=== PATIENT | female | born 1950 | race Caucasian/White ===

== ENCOUNTER → 2016-08-07 | Outpatient (CLI) | payer OTHER ==
--- NOTE | 2016-08-08 04:49 | REP ---
Clinical: Follow up cysts. Technique: Real time mcadams scale ultrasound examination using curved array transducer. Comparison: 08/20/2015. Findings: The bilateral kidneys are normal in reniform shape and echogenicity without hydronephrosis, obvious nephrolithiasis, mass lesion or perinephric fluid collection. Bilateral predominately sub centimeter complex cysts with small amounts of scattered mural calcifications are appreciated and relatively stable compared to prior examination. Right kidney measures 9.4 x 4.8 x 4.2 cm with multiple complex sub centimeter cysts and 1.4 cm upper pole partially calcified cyst essentially unchanged from prior exam. Left kidney measures 10.5 x 5.6 x 4.8 cm with multiple complex sub centimeter cysts and 1.1 cm upper pole partially calcified cyst essentially unchanged from prior examination. The bladder is unremarkable and bilateral ureteral jets are noted. Impression: Bilateral predominately sub centimeter cysts with scattered mural calcifications essentially unchanged compared to 2016. Signed by Joey Valerio MD 08/08/2016 04:40 A
== END ==
LOC: M SMT 12:58
PROVIDERS: ATTEND Nurse Practitioner Women's Health
DX: N28.1 Cyst of kidney, acquired (principal)

== ENCOUNTER → 2016-10-02 | Outpatient (CLI) | payer OTHER ==
--- NOTE | 2016-10-02 10:49 | REPMRS ---
Patient History The patient states she had a clinical breast exam in Patient is postmenopausal. No known family history of cancer. Benign excisional biopsy of the right breast, 1995. Digital Woman Screen Mammo: October 02, 2016 - Exam #: [id number] Bilateral CC and MLO view(s) were taken. Technologist: Lashonda Faust, Technologist Prior study comparison: October 01, 2015, digital woman screen mammo performed at [facility]. September 27, 2014, digital woman screen mammo performed at [facility]. FINDINGS: There are scattered fibroglandular densities. There has been no change in the appearance of the mammogram from the prior studies. There is a mild amount of residual fibroglandular tissue which is fairly symmetric. There is no interval development of dominant mass, architectural distortion, or clustered microcalcification suggestive of malignancy. ASSESSMENT: BI-RADS/ACR category 1 mammogram. Negative. Recommendation Routine screening mammogram in 1 year (for women over age 40). This mammogram was interpreted with the aid of an FDA-approved computer-aided dectection system. Electronically Signed By: Roshan Crum MD 10/02/16 [id number]
== END ==
LOC: M WHC 09:22
PROVIDERS: ATTEND Nurse Practitioner Family
DX: Z12.31 Encounter for screening mammogram for malignant neoplasm of breast (principal)

== ENCOUNTER → 2016-10-02 | Outpatient (REF) | payer OTHER | LOC: M SFHCWAGY 10:03 | PROVIDERS: ATTEND Nurse Practitioner Family | DX: Z12.4 Encounter for screening for malignant neoplasm of cervix (principal) ==

== ENCOUNTER → 2017-07-22 | Outpatient (CLI) | payer MEDICARE, OTHER | LOC: M SMT 09:07 | DX: N28.1 Cyst of kidney, acquired (principal) | CPT/HCPCS: 76770 ==

== ENCOUNTER → 2017-10-05 | Outpatient (CLI) | payer MEDICARE, OTHER | LOC: M WHC 09:16 | DX: Z12.31 Encounter for screening mammogram for malignant neoplasm of breast (principal); Z01.419 Encounter for gynecological examination (general) (routine) without abnormal findings (principal); Z92.89 Personal history of other medical treatment; Z12.12 Encounter for screening for malignant neoplasm of rectum | CPT/HCPCS: 77067 ==

== ENCOUNTER → 2018-07-27 | Outpatient (CLI) | payer MEDICARE, OTHER ==
--- NOTE | 2018-07-27 10:58 | REP ---
RENAL AND BLADDER ULTRASOUND: Real-time sonographic evaluation of the kidneys performed. Right kidney is slightly smaller in size than the left and may be mildly atrophic, measuring 8.8 x 4.7 x 4.9 cm. Left kidney measures 10.0 x 4.9 x 4.9 cm. There is no hydronephrosis bilaterally. A cyst with linear wall calcifications is seen in the upper pole of the right kidney 1.6 cm in diameter. A cyst with a peripheral calcification in the lower pole of the right kidney measures 1.4 cm in diameter. A cyst in the upper pole of the left kidney contains a calcification in the wall 1.4 cm in diameter. Other smaller cysts are seen bilaterally. Urinary bladder is distended with no evidence of mass or calculus. There are bilateral ureteral jets in the urinary bladder with Doppler color evaluation. IMPRESSION: There appears to be mild right renal atrophy. No hydronephrosis. Bilateral renal cysts. The findings are essentially unchanged compared to the prior study of 07/22/2017. Electronically Signed by Roshan Crum MD 07/27/2018 12:36 P
== END ==
LOC: M RAD 09:54
PROVIDERS: ATTEND Nurse Practitioner Women's Health
DX: N26.1 Atrophy of kidney (terminal) (principal); N28.1 Cyst of kidney, acquired; Z87.440 Personal history of urinary (tract) infections

== ENCOUNTER → 2018-11-02 | Outpatient (REF) | payer MEDICARE, OTHER | LOC: M SFHCWAGY 09:46 | PROVIDERS: ATTEND Nurse Practitioner Family | DX: Z12.4 Encounter for screening for malignant neoplasm of cervix (principal); N95.8 Other specified menopausal and perimenopausal disorders ==

== ENCOUNTER → 2018-11-02 | Outpatient (CLI) | payer MEDICARE, OTHER ==
--- NOTE | 2018-11-02 12:40 | REPMRS ---
Patient History The patient states she had a clinical breast exam in 10/2018. Patient is postmenopausal. No known family history of cancer. Benign excisional biopsy of the right breast, 1995. No Hormone Replacement Therapy 3D TOMOSYNTHESIS WAS PERFORMED. The [facility] lifetime risk for breast cancer is 6.9%. Digital Woman Screen Mammo: November 02, 2018 - Exam #: [id number] Bilateral CC and MLO view(s) were taken. Technologist: Janay Best, Technologist Prior study comparison: October 05, 2017, bilateral digital woman screen mammo performed at [facility]. October 02, 2016, digital woman screen mammo performed at [facility]. FINDINGS: There are scattered fibroglandular densities. There has been no change in the appearance of the mammogram from the prior studies. There is a mild amount of residual fibroglandular tissue which is fairly symmetric. There is no interval development of dominant mass, architectural distortion, or clustered microcalcification suggestive of malignancy. Assessment: BI-RADS/ACR category 1 mammogram. Negative Mammogram. Recommendation Routine screening mammogram in 1 year (for women over age 40). This mammogram was interpreted with the aid of an FDA-approved computer-aided dectection system. Electronically Signed By: Roshan Crum MD 11/02/18 1149
--- NOTE | 2018-11-04 15:34 | DEXA ---
AP SPINE L1 - L4 1.171 -0.2 1.4 LT FEMUR TOTAL 0.951 -0.5 0.8 LT NECK 0.878 -1.2 0.4 RT FEMUR TOTAL 0.962 -0.4 0.9 RT NECK 0.957 -0.6 1.0 TOTAL BODY TOTAL OTHER COMMENTS: Normal bone densitometry of the spine. Normal bone densitometry of the right hip. There is low bone density of the left hip. The increased density of the spine does not represent a significant change. The increased density of the right hip does represent a significant change. The density of the spine has increased 0.5% since the initial exam on 05/23/2003. The spine density has increased 0.3% since the most recent exam on 09/26/2013. The density of the left hip has decreased 5.0% since the initial exam on 05/23/2003. The density of the left hip has increased 0.0% since the most recent exam on 09/26/2013. The density of the right hip has increased 0.2% since the initial exam on 05/23/2003. The density of the right hip has increased 2.4% since the most recent exam on 09/26/2013. FOLLOW-UP: Recommendation for the next bone density exam: 2 years. BROOKE
== END ==
LOC: M WHC 09:23
PROVIDERS: ATTEND Nurse Practitioner Family
DX: Z01.419 Encounter for gynecological examination (general) (routine) without abnormal findings (principal); Z12.31 Encounter for screening mammogram for malignant neoplasm of breast; N95.9 Unspecified menopausal and perimenopausal disorder; Z78.0 Asymptomatic menopausal state; Z86.018 Personal history of other benign neoplasm
CPT/HCPCS: 77063; 77067; 77080; G0101; G0123

== ENCOUNTER → 2019-08-09 | Outpatient (CLI) | payer MEDICARE, OTHER ==
--- NOTE | 2019-08-09 16:14 | REP ---
URINARY TRACT SONOGRAPHY: HISTORY: Followup cysts. Comparison urinary tract sonography, July 27, 2018. FINDINGS: Scanning at the level of the urinary bladder shows no abnormality. Renal cortical echogenicity pattern is slightly increased on the right, felt to be normal on the left. There is no evidence of hydronephrosis or renal mass on either side. Right renal dimensions are 8.7 x 4.1 x 4.5 cm. The right kidney is felt to be atrophic. Similar dimensions were measured previously. The left kidney measures 10.3 x 5.9 x 5.9 cm. There are bilateral renal cysts, multiple in each kidney. There is some calcification in the wall of the cyst in the upper pole right kidney which measures 1.5 cm in diameter, unchanged. There are calcifications in the wall of the lower pole cyst on the right which measures 1.3 cm. There are two other small cysts in the right kidney measuring 1.0 and 0.8 cm in greatest diameter. There is evidence of calcification in the wall of the upper pole cyst on the left measuring 1.3 cm in greatest diameter. There is a 0.8 cm cyst and a 0.5 cm cyst in the left kidney. IMPRESSION: Multiple minimally complex cysts bilaterally. No hydronephrosis seen. Right renal atrophy and mildly echogenic renal parenchyma. No renal mass lesions seen. Electronically Signed by Luciano Martinez MD 08/10/2019 08:10 A
== END ==
LOC: M RAD 13:08
PROVIDERS: ATTEND Nurse Practitioner Women's Health
DX: N28.1 Cyst of kidney, acquired (principal)

== ENCOUNTER → 2019-11-16 | Outpatient (CLI) | payer MEDICARE, OTHER ==
--- NOTE | 2019-11-16 15:27 | REPMRS ---
Patient History The patient states she had a clinical breast exam in 10/2019. No known family history of cancer. Benign excisional biopsy of the right breast, 1995. No Hormone Replacement Therapy 3D TOMOSYNTHESIS WAS PERFORMED. [facility] lifetime risk for breast cancer is 6.5%. VOLPARA DENSITY A. Digital Woman Screen Mammo: November 16, 2019 - Exam #: [id number] Bilateral CC and MLO view(s) were taken. Technologist: Janay Best, Technologist Prior study comparison: November 02, 2018, bilateral digital woman screen mammo performed at [facility] October 05, 2017, bilateral digital woman screen mammo performed at [facility]. FINDINGS: There are scattered fibroglandular densities. There has been no change in the appearance of the mammogram from the prior studies. There is a mild amount of residual fibroglandular tissue which is fairly symmetric. There is no interval development of dominant mass, architectural distortion, or clustered microcalcification suggestive of malignancy. Assessment: BI-RADS/ACR category 1 mammogram. Negative Mammogram. Recommendation Routine screening mammogram in 1 year (for women over age 40). This mammogram was interpreted with the aid of an FDA-approved computer-aided dectection system. Electronically Signed By: Roshan Crum MD 11/16/19 [id number]
== END ==
LOC: M WHC 14:00
PROVIDERS: ATTEND Nurse Practitioner Family
DX: Z12.31 Encounter for screening mammogram for malignant neoplasm of breast (principal); Z86.018 Personal history of other benign neoplasm

== ENCOUNTER → 2020-08-14 | Outpatient (REF) | payer MEDICARE, OTHER ==
[2020-08-14 13:21] LABS: APPEARANCE, URINE CLEAR (CLEAR); BACTERIA, URINE AUTO 1+ (NEGATIVE); BILIRUBIN, URINE AUTO NEGATIVE (NEGATIVE); BLOOD, URINE BLOOD 1+ (NEGATIVE); COLOR, URINE YELLOW (YELLOW); GLUCOSE, URINE (UA) AUTO NEGATIVE (NEGATIVE); KETONE, URINE AUTO NEGATIVE (NEGATIVE); LEUKOCYTE ESTERASE, URINE AUTO 1+ (NEGATIVE); NITRITE, URINE AUTO NEGATIVE (NEGATIVE); PROTEIN, URINE AUTO NEGATIVE (NEGATIVE); RBC, URINE AUTO 1 /HPF (0-3); SPECIFIC GRAVITY URINE AUTO 1.009 (1.002-1.035); SQUAMOUS EPITHELIAL CELL UR AU 0 /HPF (0-6); UROBILINOGEN, URINE AUTO 0.2 mg/dL (0.0-2.0); WBC, URINE AUTO 5 /HPF (0-3)
== END ==
LOC: M SMT 12:53
PROVIDERS: ATTEND Nurse Practitioner Women's Health
DX: Z87.440 Personal history of urinary (tract) infections (principal); Z79.899 Other long term (current) drug therapy
CPT/HCPCS: 81001; 87088; 87186; G0463

== ENCOUNTER → 2020-11-20 | Outpatient (CLI) | payer MEDICARE, OTHER ==
--- NOTE | 2020-11-20 09:59 | REPMRS ---
Patient History The patient states she had a clinical breast exam in October 2020. Patient is postmenopausal and has history of other cancer at age 69. No known family history of cancer. Benign excisional biopsy of the right breast, 1995. No Hormone Replacement Therapy Patient states no breast complaints today. Patient has signed MRS History Sheet. Digital Woman Screen Mammo: November 20, 2020 - Exam #: [id number] Bilateral CC and MLO view(s) were taken. Technologist: Tania Cedeno, Technologist Prior study comparison: November 16, 2019, bilateral digital woman screen mammo performed at [facility]. November 02, 2018, bilateral digital woman screen mammo performed at [facility]. FINDINGS: The breast tissue is almost entirely fat. Screening. Digital screening (2D) mammography was performed bilaterally in the CC and MLO projections. Additionally, breast tomosynthesis (3D mammography) was performed bilaterally in the CC and MLO projections. Todays exam was compared to the prior exam/exams. By history, the patient has no complaints of a palpable breast abnormality or other significant breast complaints. The breasts are unchanged in size and shape. There are no vishnu-soft tissue densities or spiculated masses. There is no internal architectural distortion. Once again, stable benign appearing calcifications are seen.There are no suspicious vishnu-calcific clusters. Skin thickening or nipple retraction is not present. IMPRESSION: BI-RADS Category 2- Benign Findings. There is no evidence of malignant alteration of the breasts. Followup examination recommended in one year. The Volpara volumetric breast density category is A, the breasts are almost entirely fatty. This mammogram was read with [facility] assistance of [facility],an FDA approved computer aided detection system for mammography. The lifetime Tyrer-Cuzick score is 6.1 % Negative x-ray reports should not delay surgical consultation if a dominant or clinically suspicious mass is present. Not all breast cancers can be identified by mammography. Therefore, we recommend that you continue to perform regular breast self-examination and physical examination and then promptly contact your physician of any concerns or changes. Adenosis and dense breasts may obscure an underlying neoplasm. Assessment: BI-RADS/ACR category 2 mammogram. Benign Findings. Recommendation Routine screening mammogram of both breasts in 1 year. Electronically Signed By: Tra Stuart DO 11/20/20 [id number]
== END ==
LOC: M WHC 08:49
PROVIDERS: ATTEND Nurse Practitioner Women's Health
DX: Z12.4 Encounter for screening for malignant neoplasm of cervix (principal); Z12.31 Encounter for screening mammogram for malignant neoplasm of breast; Z78.0 Asymptomatic menopausal state; Z85.9 Personal history of malignant neoplasm, unspecified
CPT/HCPCS: 77063; 77067; G0101

== ENCOUNTER → 2021-08-07 | Outpatient (CLI) | payer MEDICARE, OTHER | LOC: M RAD 09:53 | PROVIDERS: ATTEND Nurse Practitioner Women's Health | DX: N28.1 Cyst of kidney, acquired (principal) ==

== ENCOUNTER → 2021-10-23 | Outpatient (REF) | payer MEDICARE, OTHER ==
[2021-10-23 17:52] LABS: APPEARANCE, URINE MANUAL CLEAR (CLEAR); COLOR, URINE MANUAL YELLOW (YELLOW)
[2021-10-23 17:54] LABS: SPECIFIC GRAVITY,URINE MANUAL 1.005 (1.002-1.035)
[2021-10-23 17:55] LABS: BILIRUBIN, URINE MANUAL NEGATIVE (NEGATIVE); BLOOD URINE MANUAL NEGATIVE (NEGATIVE); GLUCOSE, URINE (UA) MANUAL NEGATIVE (NEGATIVE); KETONE, URINE MANUAL NEGATIVE (NEGATIVE); LEUKOCYTE ESTERASE, URINE MAN POSITIVE (NEGATIVE); NITRITE, URINE MANUAL NEGATIVE (NEGATIVE); PROTEIN, URINE MANUAL NEGATIVE (NEGATIVE); UROBILINOGEN, URINE MANUAL NORMAL (NORMAL)
[2021-10-23 19:02] LABS: BACTERIA, URINE SMALL AMOUNT; HYALINE CAST, URINE NONE SEEN /lpf (0-1); RENAL EPITHELIAL CELLS, URINE SMALL AMOUNT /hpf; SQUAMOUS EPITHELIAL CELL URINE MOD AMOUNT /hpf (SMALL AMT); TRANSITIONAL EPI CELLS, URINE MOD AMOUNT /hpf
== END ==
LOC: M SMT 17:19
PROVIDERS: ATTEND Nurse Practitioner Women's Health
DX: R35.0 Frequency of micturition (principal)

== ENCOUNTER → 2021-11-22 | Outpatient (REF) | payer MEDICARE, OTHER | LOC: M SFHCWAGY 13:30 | PROVIDERS: ATTEND Specialist | DX: Z01.419 Encounter for gynecological examination (general) (routine) without abnormal findings (principal); Z12.4 Encounter for screening for malignant neoplasm of cervix ==

== ENCOUNTER → 2022-11-24 | Outpatient (CLI) | payer MEDICARE, OTHER | LOC: M WHC 10:30 | PROVIDERS: ATTEND Specialist | DX: Z12.31 Encounter for screening mammogram for malignant neoplasm of breast (principal) ==

== ENCOUNTER → 2023-08-10 | Outpatient (CLI) | payer MEDICARE, OTHER | LOC: M RAD 12:45 | PROVIDERS: ATTEND Physician Assistant | DX: N28.1 Cyst of kidney, acquired (principal) ==

== ENCOUNTER → 2023-08-17 | Outpatient (REF) | payer MEDICARE, OTHER ==
[2023-08-17 12:50] LABS: APPEARANCE, URINE CLEAR (CLEAR); BACTERIA, URINE AUTO 1+ (NEGATIVE); BILIRUBIN, URINE AUTO NEGATIVE (NEGATIVE); BLOOD, URINE BLOOD NEGATIVE (NEGATIVE); COLOR, URINE STRAW (YELLOW); GLUCOSE, URINE (UA) AUTO NEGATIVE (NEGATIVE); KETONE, URINE AUTO NEGATIVE (NEGATIVE); LEUKOCYTE ESTERASE, URINE AUTO NEGATIVE (NEGATIVE); MUCUS, URINE SMALL (NEGATIVE); NITRITE, URINE AUTO NEGATIVE (NEGATIVE); PROTEIN, URINE AUTO NEGATIVE (NEGATIVE); RBC, URINE AUTO 1 /HPF (0-3); SPECIFIC GRAVITY URINE AUTO 1.006 (1.002-1.035); SQUAMOUS EPITHELIAL CELL UR AU 0 /HPF (0-6); UROBILINOGEN, URINE AUTO 0.2 mg/dL (0.0-2.0); WBC, URINE AUTO 1 /HPF (0-3)
== END ==
LOC: M SMT 12:35
PROVIDERS: ATTEND Physician Assistant
DX: R31.21 Asymptomatic microscopic hematuria (principal)

== ENCOUNTER → 2023-12-02 | Outpatient (CLI) | payer MEDICARE, OTHER | LOC: M WHC 10:00 | PROVIDERS: ATTEND Obstetrics & Gynecology | DX: Z12.31 Encounter for screening mammogram for malignant neoplasm of breast (principal); R92.313 Mammographic fatty tissue density, bilateral breasts ==

== ENCOUNTER → 2024-08-15 | Outpatient (REF) | payer MEDICARE, OTHER ==
[2024-08-15 13:47] LABS: APPEARANCE, URINE CLEAR (CLEAR); BACTERIA, URINE AUTO 1+ (NEGATIVE); BILIRUBIN, URINE AUTO NEGATIVE (NEGATIVE); BLOOD, URINE BLOOD NEGATIVE (NEGATIVE); COLOR, URINE YELLOW (YELLOW); GLUCOSE, URINE (UA) AUTO NEGATIVE (NEGATIVE); KETONE, URINE AUTO NEGATIVE (NEGATIVE); LEUKOCYTE ESTERASE, URINE AUTO NEGATIVE (NEGATIVE); NITRITE, URINE AUTO NEGATIVE (NEGATIVE); PROTEIN, URINE AUTO NEGATIVE (NEGATIVE); RBC, URINE AUTO 1 /HPF (0-3); SPECIFIC GRAVITY URINE AUTO 1.015 (1.002-1.035); SQUAMOUS EPITHELIAL CELL UR AU 1 /HPF (0-6); UROBILINOGEN, URINE AUTO 0.2 mg/dL (0.0-2.0); WBC, URINE AUTO 1 /HPF (0-3)
== END ==
LOC: M SMT 12:49
PROVIDERS: ATTEND Physician Assistant
DX: R31.21 Asymptomatic microscopic hematuria (principal)
CPT/HCPCS: 81001; 88108; G0463

== ENCOUNTER → 2024-12-02 | Outpatient (CLI) | payer MEDICARE, OTHER | LOC: M WHC 08:50 | PROVIDERS: ATTEND Physician Assistant | DX: Z12.31 Encounter for screening mammogram for malignant neoplasm of breast (principal); R92.313 Mammographic fatty tissue density, bilateral breasts ==